=== PATIENT | female | born 1980 | race Caucasian/White ===

== ENCOUNTER 2020-08-19 02:05 | Emergency (ER) | payer BC ==
[~2020-08-19] VITALS: Ht 162.6 cm; Wt 102.1 kg
--- NOTE | 2020-08-19 02:11 | NUR ---
PT BIBSELF C/O L LOWER BACK PAIN SINCE NOON. PT RECENTLY DX WITH UTI ON 08/15/20 AND CURRENTLY ON MACROBID. PT AAOX4. RESPIRATIONS EVEN AND UNLABORED. VITAL SIGNS STABLE. SKIN INTACT. AMBULATORY WITH STEADY GAIT. NO ACUTE DISTRESS NOTED AT THIS TIME. WILL CONTINUE TO MONITOR
--- NOTE | 2020-08-19 02:27 | NUR ---
Cat clayton in [facility] - 08/19/20 at 0233 by KENY PATIENT IS PLACED ON A BED PEREZ BECAUSE SHE WANTS TO USE THE RESTROOM.
--- NOTE | 2020-08-19 02:31 | NUR ---
Note [facility] in [facility] - 08/19/20 at 0233 by KENY PATIENT CAME TO BED 13 C/O WEAKNESS SINCE TONIGHT. PATIENT STATES THAT SHE HAS BEEN FEELING NAUSEOUS AND DRY-HEAVING. NERIS NGUYEN, " I AM NAUSEOUS". PATIENT IS AAOX4. NO SOB. BREATHING EVENLY AND UNLABORED ON ROOM AIR. CONNECTED TO THE MONITOR.
--- NOTE | 2020-08-19 02:50 | NUR ---
URINE COLLECTED AND SENT TO LAB
[2020-08-19] MEDS ORDERED: MORPHINE SULFATE INJ 2 MG/ML DISP.SYRIN IV ONE (03:00)
[2020-08-19] MEDS ORDERED: IV NS 0.9% 1,000 ML BAG IV ONE (03:00)
[2020-08-19] MEDS ORDERED: ONDANSETRON HCL/PF 4 MG/2 ML VIAL IVP ONE (03:00)
[2020-08-19 03:18] LABS: BASOPHILS # (AUTO) 0.1 /CMM (0.0-0.2); EOSINOPHILS % (AUTO) 4.4 % (0.0-6.0); HEMATOCRIT 36 % (33-45); HEMOGLOBIN 12.3 g/dL (11.5-14.8); LYMPHOCYTES % (AUTO) 29.4 % (20.0-44.0); MEAN CORPUSCULAR HGB CONC 34 g/dl (31.0-36.0); MEAN CORPUSCULAR VOLUME 92 fL (82-100); MONOCYTES # (AUTO) 0.9 /CMM (0.1-1.30); MONOCYTES % (AUTO) 13.1 % (2.0-12.0); NEUTROPHILS # (AUTO) 3.5 /CMM (1.8-8.9); NEUTROPHILS % (AUTO) 52.1 % (43.0-81.0); PLATELET COUNT (AUTO) 351 /CMM (150-450); RED BLOOD CELL COUNT(AUTO) 3.93 MIL/uL (4.0-5.2); WHITE BLOOD COUNT (AUTO) 6.7 K/uL (4.3-11.0)
[2020-08-19] MEDS ORDERED: MORPHINE SULFATE INJ 4 MG/ML DISP.SYRIN ONE (03:18)
[2020-08-19] MEDS ORDERED: ONDANSETRON HCL/PF 4 MG/2 ML VIAL ONE (03:18)
[2020-08-19 03:25] LABS: ALBUMIN 3.4 g/dL (3.4-5.0); BILIRUBIN,DIRECT 0.1 mg/dL (0.0-0.2); BILIRUBIN,TOTAL 0.2 mg/dL (0.2-1.0); CALCIUM, SERUM 8.8 mg/dL (8.5-10.1); CREATININE 0.6 mg/dL (0.6-1.3); POTASSIUM 3.7 mmol/L (3.5-5.1); TOTAL PROTEIN, SERUM 7.4 g/dL (6.4-8.2)
[2020-08-19 03:25] LABS: APPEARANCE,URINE CLEAR (CLEAR); BILIRUBIN,URINE NEGATIVE (NEGATIVE); BLOOD, URINE NEGATIVE Ery/uL (NEGATIVE); COLOR,URINE YELLOW (YELLOW); KETONES,URINE NEGATIVE (NEGATIVE); LEUKOCYTE ESTERASE ,URINE NEGATIVE (NEGATIVE); NITRITE, URINE NEGATIVE (NEGATIVE); PROTEIN,URINE NEGATIVE (NEGATIVE); UGLUCOSE NEGATIVE (NEGATIVE); UROBILINOGEN,URINE 0.2 EU/dL (0.2)
[2020-08-19] MEDS ORDERED: IV NS 0.9% 250 ML IV ONE (03:39)
[2020-08-19] MEDS ORDERED: IOHEXOL-300 100 ML VIAL IV ONE (03:39)
--- NOTE | 2020-08-19 05:31 | NUR ---
Patient discharged to home in stable condition. Written and verbal after care instructions given. Patient verbalizes understanding of instruction.IV removed. Catheter intact and site benign. Pressure and 4x4 applied to site. No bleeding noted.Pt ambulatory with a steady gait
[2020-08-19 05:50] VITALS: BP 111/71
== END 2020-08-19 05:31 | disposition home or self-care (01) ==
LOC: ER 02:08
DX: D25.9 Leiomyoma of uterus, unspecified (principal); R10.32 Left lower quadrant pain; R11.0 Nausea
CPT/HCPCS: 36415; 74170; 80048; 80076; 81001; 83690; 84703; 85025; 87086; 96361; 96374; 96375; 99285; J2270; J2405; J7030; J7050; Q9967; 81000-TC

== ENCOUNTER 2025-10-20 20:04 | Emergency (ER) | payer BC ==
[~2025-10-20] VITALS: Ht 162.6 cm; Wt 124.7 kg
[2025-10-20] MEDS ORDERED: TETRAcaine 5 ML BOTTLE ONE (21:24)
[2025-10-20 21:51] LABS: PLATELET COUNT (AUTO) 353 K/uL (150-450); RED BLOOD CELL COUNT(AUTO) 4.03 MIL/uL (4.0-5.2); RED CELL DISTRIBUTION WIDTH 14.0 % (11.5-15.0); WHITE BLOOD COUNT (AUTO) 9.1 K/uL (4.3-11.0)
[2025-10-20 21:59] LABS: CALCIUM, SERUM 8.5 mg/dL (8.5-10.1); CREATININE 0.8 mg/dL (0.6-1.3); SODIUM SERUM 139.0 mmol/L (136-145); UREA NITROGEN, BLOOD 15.0 mg/dL (7-18)
[2025-10-20] MEDS: TETRAcaine 5 ML BOTTLE EACHEYE ONE (22:06)
[2025-10-20 22:12] VITALS: BP 135/70; TEMP 98; O2SAT 97
== END 2025-10-20 22:12 | disposition home or self-care (01) ==
LOC: ER 20:17
DX: H57.02 Anisocoria (principal)
CPT/HCPCS: 36415; 80048-TC; 85025-TC